=== PATIENT | female | born 1980 ===

== ENCOUNTER → 2022-01-09 | Day surgery (SDC) | payer OTHER | END | disposition home or self-care (01) | LOC: ADM 01-02 10:30 → AMB-ENDOS 06:00 | PROVIDERS: ATTEND Surgery | DX: K29.00 Acute gastritis without bleeding (principal); Z20.822 Contact with and (suspected) exposure to COVID-19; K44.9 Diaphragmatic hernia without obstruction or gangrene; I10 Essential (primary) hypertension ==

== ENCOUNTER 2022-07-29 07:45 | Outpatient (CLI) | payer OTHER | END 2022-07-29 07:58 | disposition home or self-care (01) | LOC: SONOGRAMA 07:45 | PROVIDERS: ATTEND Surgery | DX: R10.31 Right lower quadrant pain (principal); E66.01 Morbid (severe) obesity due to excess calories ==